=== PATIENT | female | born 1970 | race Two or more races ===

== ENCOUNTER 2021-11-25 14:58 | Emergency (ER) | payer OTHER ==
[~2021-11-25] VITALS: Ht 167.6 cm; Wt 68.0 kg
[2021-11-25] MEDS ORDERED: LANTUS SOL100 UNIT/1 SUBCUTANEO (15:21)
[2021-11-25] MEDS ORDERED: HUMALOG100 UNIT/2 SUBCUTANEO (15:21)
[2021-11-25] MEDS ORDERED: ZESTRIL2.5 MG PO (15:21)
[2021-11-25] MEDS ORDERED: ATORVASTATIN CA20 MG PO (15:21)
== END 2021-11-25 22:07 | disposition home or self-care (01) ==
LOC: ER 14:58
DX: U07.1 COVID-19 (principal); E11.65 Type 2 diabetes mellitus with hyperglycemia; Z79.4 Long term (current) use of insulin; Z88.0 Allergy status to penicillin; Z88.2 Allergy status to sulfonamides

== ENCOUNTER 2021-12-31 09:35 | Emergency (ER) | payer OTHER ==
[~2021-12-31] VITALS: Ht 160 cm; Wt 68.0 kg
[~2021-12-31 09:35] MED LIST: ATORVASTATIN CA20 MG PO; HUMALOG100 UNIT/2 SUBCUTANEO; LANTUS SOL100 UNIT/1 SUBCUTANEO; ZESTRIL2.5 MG PO
== END 2021-12-31 17:17 | disposition home or self-care (01) ==
LOC: ER 09:35
DX: T38.0X5A Adverse effect of glucocorticoids and synthetic analogues, initial encounter (principal); Y92.9 Unspecified place or not applicable